=== PATIENT | male | born 1965 | race Caucasian/White ===

== ENCOUNTER 2022-04-11 11:43 | Emergency (ER) | payer OTHER ==
[2022-04-11] MEDS ORDERED: LIDOCAINE 1% 20 ML MDV ONE (12:03)
--- NOTE | 2022-04-11 12:32 | ER ---
Nurse's Notes [facility] Name: Umberto Oshea Age: 56 yrs Sex: Male : 1965 Arrival Date: 04/11/2022 Time: 11:46 Bed 5 Private MD: Diagnosis: Crushing injury of left hand, initial encounter-OPEN FRACTURES DISTAL PHALYNX 3RD, 4TH AND 5TH;Unspecified cirrhosis of liver Presentation: 04/11 11:47 Chief complaint: EMS states: "He was working on a water pump and tightening a bolt when ss the pump kicked on and his 3rd, 4th and 5th finger got caught in the belt." EMS reports "partial deglovement" to affected digits. Dressing in place prior to transport to ED. Coronavirus screen: Client denies travel out of the [place] in the last 14 days. Ebola Screen: Patient denies exposure to infectious person. Patient denies travel to an Ebola-affected area in the 21 days before illness onset. Initial Sepsis Screen: Does the patient meet any 2 criteria? No. Patient's initial sepsis screen is negative. Does the patient have a suspected source of infection? No. Patient's initial sepsis screen is negative. Risk Assessment: Do you want to hurt yourself or someone else? Patient reports no desire to harm self or others. Onset of symptoms was April 11, 2022. 11:47 Method Of Arrival: EMS: [facility] 11:47 Acuity: SHYANN 3 ss Historical: - Allergies: 11:50 No Known Allergies; ss - PMHx: 11:50 enlarged prostate; ss - PSHx: 11:50 None; ss - Immunization history:: Client reports having NOT received the Covid vaccine. Last tetanus immunization: up to date. - Social history:: Smoking status: Patient denies any tobacco usage or history of. - Family history:: not pertinent. Screenin:50 Abuse screen: Denies threats or abuse. Denies injuries from another. Nutritional ss screening: No deficits noted. Tuberculosis screening: Never had TB. Fall Risk None identified. Assessment: 11:51 General: Appears in no apparent distress. comfortable, Behavior is calm, cooperative. ss Pain: Complains of pain in right hand. Neuro: Watters Agitation-Sedation Scale (RASS): 0 - Alert and Calm Level of Consciousness is awake, alert, obeys commands, Oriented to person, place, time, situation. Cardiovascular: Pulses are palpable in right radial artery and left radial artery. Respiratory: Airway is patent Respiratory effort is even, unlabored, Respiratory pattern is regular, symmetrical. GI: No signs and/or symptoms were reported involving the gastrointestinal system. Musculoskeletal: Range of motion: limited in DIP of right middle finger, DIP of right ring finger and DIP of right little finger. 12:44 Reassessment: PT denies pain at this time after digital block and states he would like to hold off on receiving any pain medication at this time and will let ED staff know if his pain returns. Two detention guards remain at bedside. Pt remains in forensic cuffs. Respiratory: Airway is patent Respiratory effort is even, unlabored, Respiratory pattern is regular, symmetrical. 14:26 Reassessment: Report given to AIDA Mccracken [facility]. 15:00 Reassessment: Patient appears in no apparent distress at this time. Patient and/or ss family updated on plan of care and expected duration. Pain level reassessed. Patient is alert, oriented x 3, equal unlabored respirations, skin warm/dry/pink. Denies pain. [facility] states ETA will be approximately two hours. 15:00 Pain: Denies pain. 16:27 Reassessment: Patient appears in no apparent distress at this time. Patient and/or ss family updated on plan of care and expected duration. Pain level reassessed. awaiting transportation. Denies pain. Vital Signs: 11:47 BP 123 / 79; Pulse 73; Resp 16; Temp 98.0(TE); Pulse Ox 99% on R/A; Weight 78.02 kg; Height 6 ft. 2 in. (187.96 cm); 11:47 Body Mass Index 22.08 (78.02 kg, 187.96 cm) ED Course: 11:46 Patient arrived in ED. 11:47 Maral Pantoja RN is Primary Nurse. 11:50 Triage completed. 11:50 Tommy Chiu MD is Attending Physician. [facility] 11:50 Arm band placed on right wrist. 11:50 Patient has correct armband on for positive identification. Bed in low position. Call ss light in reach. 12:37 Inserted saline lock: 20 gauge in left antecubital area, using aseptic technique. Blood em1 collected. 12:41 Hand Right 3 View XRAY In Process Unspecified. EDMS 17:06 No provider procedures requiring assistance completed. Patient transferred, IV remains ss in place. Administered Medications: 12:15 Drug: Bupivacaine (0.5 %) 6 ml {Note: administered by Dr. Chiu to wound.} Volume: ss 10 ml; Route: Infiltration; 12:15 Drug: Lidocaine (1 %) 6 ml {Note: Administered by Dr. Chiu to wound.} Volume: 5 ml; ss Route: Infiltration; 12:40 Drug: NS 0.9% 500 ml Route: IV; Rate: bolus; Site: left antecubital; ss 13:25 Follow up: IV Status: Completed infusion ss 13:24 Drug: NS 0.9% 1000 ml Route: IV; Rate: 125 ml/hr; Site: left antecubital; ss 17:08 Follow up: IV Status: Infusion continued upon transfer ss 13:24 Drug: Ancef (cefazolin) 2 grams Route: IVPB; Infused Over: 30 mins; Site: left ss antecubital; 14:00 Follow up: IV Status: Completed infusion ss 16:59 Drug: morphine 4 mg Route: IVP; Infused Over: 4 mins; Site: left antecubital; ss 17:07 Follow up: Response: No adverse reaction; No adverse reaction, medication administered ss upon transfer as requested by patient 16:59 Drug: Zofran (Ondansetron) 4 mg Route: IVP; Site: left antecubital; ss 17:07 Follow up: Response: No adverse reaction ss Medication: 11:51 VIS not applicable for this client. Outcome: 12:31 ER care complete, transfer ordered by MD. cm 17:06 Transferred by ground EMS to [facility], Transfer form ss completed. X-rays sent w/ patient. 17:06 Condition: good 17:06 Instructed on the need for transfer, Demonstrated understanding of instructions. 17:06 Patient left the ED. ss Signatures: Dispatcher [employer] EDTommy Yoo MD MD cha Williams, Irene, RN Steve Riggs em1 Maral Pantoja RN RN
--- NOTE | 2022-04-11 12:32 | EDPHYS ---
Physician Documentation [facility] Name: Umberto Oshea Age: 56 yrs Sex: Male : 1965 Arrival Date: 04/11/2022 Time: 11:46 Bed 5 Private MD: JOSÉ Physician Tommy Chui HPI: 04/11 12:20 This 56 yrs old Male presents to ER via EMS with complaints of Hand Injury. toi 12:20 This 56 yrs old Male presents to ER via EMS with complaints of Hand Injury. toi 12:20 The patient or guardian reports decreased range of motion, injury, a laceration, toi irregular, complex. The complaints affect the right hand diffusely, dorsal aspect of distal phalanx of right middle finger, dorsal aspect of distal phalanx of right ring finger and right little fingernail. Context: The problem was sustained at a C. Onset: The symptoms/episode began/occurred just prior to arrival. Modifying factors: The symptoms are alleviated by holding still, the symptoms are aggravated by movement. Associated signs and symptoms: Pertinent positives: decreased sensation distally. Severity of symptoms: At their worst the symptoms were moderate, in the emergency department the symptoms are unchanged. The patient has not experienced similar symptoms in the past. Historical: - Allergies: 11:50 No Known Allergies; ss - PMHx: 11:50 enlarged prostate; ss - PSHx: 11:50 None; ss - Immunization history:: Client reports having NOT received the Covid vaccine. Last tetanus immunization: up to date. - Social history:: Smoking status: Patient denies any tobacco usage or history of. - Family history:: not pertinent. ROS: 12:20 Constitutional: Negative for fever, chills, and weight loss, Eyes: Negative for injury, toi pain, redness, and discharge, ENT: Negative for injury, pain, and discharge, Neck: Negative for injury, pain, and swelling, Cardiovascular: Negative for chest pain, palpitations, and edema, Respiratory: Negative for shortness of breath, cough, wheezing, and pleuritic chest pain, Abdomen/GI: Negative for abdominal pain, nausea, vomiting, diarrhea, and constipation, Back: Negative for injury and pain, : Negative for injury, bleeding, discharge, and swelling, Skin: Negative for injury, rash, and discoloration, Neuro: Negative for headache, weakness, numbness, tingling, and seizure, Psych: Negative for depression, anxiety, suicide ideation, homicidal ideation, and hallucinations, Allergy/Immunology: Negative for hives, rash, and allergies, Endocrine: Negative for neck swelling, polydipsia, polyuria, polyphagia, and marked weight changes, Hematologic/Lymphatic: Negative for swollen nodes, abnormal bleeding, and unusual bruising. 12:20 MS/extremity: Positive for decreased range of motion, laceration, pain, tenderness, of the dorsal aspect of distal phalanx of right middle finger, dorsal aspect of middle phalanx of right middle finger, dorsal aspect of distal phalanx of right ring finger, dorsal aspect of middle phalanx of right ring finger, dorsal aspect of distal phalanx of right little finger and right little fingernail. Exam: 12:20 Constitutional: This is a well developed, well nourished patient who is awake, alert, toi and in no acute distress. Head/Face: Normocephalic, atraumatic. Eyes: Pupils equal round and reactive to light, extra-ocular motions intact. Lids and lashes normal. Conjunctiva and sclera are non-icteric and not injected. Cornea within normal limits. Periorbital areas with no swelling, redness, or edema. ENT: Nares patent. No nasal discharge, no septal abnormalities noted. Tympanic membranes are normal and external auditory canals are clear. Oropharynx with no redness, swelling, or masses, exudates, or evidence of obstruction, uvula midline. Mucous membranes moist. Neck: Trachea midline, no thyromegaly or masses palpated, and no cervical lymphadenopathy. Supple, full range of motion without nuchal rigidity, or vertebral point tenderness. No Meningismus. Chest/axilla: Normal chest wall appearance and motion. Nontender with no deformity. No lesions are appreciated. Cardiovascular: Regular rate and rhythm with a normal S1 and S2. No gallops, murmurs, or rubs. Normal PMI, no JVD. No pulse deficits. Respiratory: Lungs have equal breath sounds bilaterally, clear to auscultation and percussion. No rales, rhonchi or wheezes noted. No increased work of breathing, no retractions or nasal flaring. Abdomen/GI: Soft, non-tender, with normal bowel sounds. No distension or tympany. No guarding or rebound. No evidence of tenderness throughout. Back: No spinal tenderness. No costovertebral tenderness. Full range of motion. Male : Normal genitalia with no discharge or lesions. Skin: Warm, dry with normal turgor. Normal color with no rashes, no lesions, and no evidence of cellulitis. Neuro: Awake and alert, GCS 15, oriented to person, place, time, and situation. Cranial nerves II-XII grossly intact. Motor strength 5/5 in all extremities. Sensory grossly intact. Cerebellar exam normal. Normal gait. Psych: Awake, alert, with orientation to person, place and time. Behavior, mood, and affect are within normal limits. 12:20 Musculoskeletal/extremity: Circulation is intact in all extremities. decreased sensation, Compartment Syndrome exam of affected extremity: is normal. Tendon exam: unable to examine Vital Signs: 11:47 BP 123 / 79; Pulse 73; Resp 16; Temp 98.0(TE); Pulse Ox 99% on R/A; Weight 78.02 kg; ss Height 6 ft. 2 in. (187.96 cm); 11:47 Body Mass Index 22.08 (78.02 kg, 187.96 cm) ss MDM: 11:50 Patient medically screened. toi 12:24 Differential diagnosis: open fracture. Data reviewed: vital signs, nurses notes, lab [facility] test result(s), radiologic studies, plain films. Data interpreted: ekg monitor tech: rhythm is Pulse oximetry: on room air. Test interpretation: by ED physician or midlevel provider: plain radiologic studies. Counseling: I had a detailed discussion with the patient and/or guardian regarding: the historical points, exam findings, and any diagnostic results supporting the discharge/admit diagnosis, lab results, radiology results, the need to transfer to another facility, for higher level of care, [facility] does not immediately have the required specialist. 04/11 12:19 Order name: CBC with Diff; Complete Time: 13:45 [facility] 04/11 12:19 Order name: Comprehensive Metabolic Panel; Complete Time: 13:45 [facility] 04/11 12:19 Order name: Hand Right 3 View XRAY; Complete Time: 13:45 [facility] 04/11 12:19 Order name: SARS-COV-2 RT PCR (Document "Date of Onset" if Symptomatic) [facility] 04/11 12:19 Order name: NPO; Complete Time: 12:38 [facility] 04/11 12:19 Order name: Dressing - Wound; Complete Time: 14:21 toi 04/11 12:19 Order name: Gloves, Sterile; Complete Time: 12:38 toi 04/11 12:19 Order name: Setup Suture Tray; Complete Time: 12:38 toi Administered Medications: 12:15 Drug: Bupivacaine (0.5 %) 6 ml {Note: administered by Dr. Chiu to wound.} Volume: ss 10 ml; Route: Infiltration; 12:15 Drug: Lidocaine (1 %) 6 ml {Note: Administered by Dr. Chiu to wound.} Volume: 5 ml; ss Route: Infiltration; 12:40 Drug: NS 0.9% 500 ml Route: IV; Rate: bolus; Site: left antecubital; ss 13:25 Follow up: IV Status: Completed infusion ss 13:24 Drug: NS 0.9% 1000 ml Route: IV; Rate: 125 ml/hr; Site: left antecubital; ss 17:08 Follow up: IV Status: Infusion continued upon transfer ss 13:24 Drug: Ancef (cefazolin) 2 grams Route: IVPB; Infused Over: 30 mins; Site: left ss antecubital; 14:00 Follow up: IV Status: Completed infusion ss 16:59 Drug: morphine 4 mg Route: IVP; Infused Over: 4 mins; Site: left antecubital; ss 17:07 Follow up: Response: No adverse reaction; No adverse reaction, medication administered ss upon transfer as requested by patient 16:59 Drug: Zofran (Ondansetron) 4 mg Route: IVP; Site: left antecubital; ss 17:07 Follow up: Response: No adverse reaction ss Disposition Summary: 04/11/22 12:31 Transfer Ordered Transfer Location: [facility] toi Reason: Higher level of care toi Condition: Fair toi Problem: new toi Symptoms: have improved toi Accepting Physician: TO [facility], HAND SURGERY(04/11/22 17:06) ss Diagnosis - Crushing injury of left hand, initial encounter - OPEN FRACTURES DISTAL PHALYNX toi 3RD, 4TH AND 5TH - Unspecified cirrhosis of liver toi Forms: - Medication Reconciliation Form toi - SBAR form toi Signatures: Dispatcher [employer] EDTommy Yoo MD MD cha Smirch, Shelby, RN RN ss Corrections: (The following items were deleted from the chart) 17:06 12:31 TO [facility], HAND SURGERY toi ss
[2022-04-11 12:41] LABS: Absolute Lymphocytes (CBC) 1.3 K/uL (0.7-4.9); Hematocrit 39.5 % (39.6-49.0); Lymphocytes % 16.7 % (15.3-44.8); MPV 8.3 fL (7.6-11.3); RBC Red Blood Cell Count 4.29 M/uL (4.33-5.43)
[2022-04-11] MEDS ORDERED: NA CHLORIDE 0.9% 1,000 ML ONE (12:47)
--- NOTE | 2022-04-11 12:47 | RAD REPORT ---
EXAM DESCRIPTION: RAD - Hand Right 3 View - 04/11/2022 12:39 pm CLINICAL HISTORY: Right hand pain status post injury FINDINGS: Avulsion fracture involves the base of the third distal phalanx which extends intra-articu larly. Markedly displaced fracture involves the fourth distal phalanx. It is comminuted. Avulsion fracture involves the base of the fifth middle phalanx. Extends intra-articularly. Comminuted moderately displaced fracture involves the fifth distal phalanx. There may be a dislocatio n as well.
[2022-04-11 12:56] LABS: Albumin 3.9 g/dL (3.4-5.0); Bilirubin Total 0.3 mg/dL (0.2-1.0); Potassium 4.6 mmol/L (3.5-5.1); Protein, Total 7.3 g/dL (6.4-8.2)
[2022-04-11] MEDS ORDERED: CEFAZOLIN SODIUM 2 GM in NA CHLORIDE 0.9% 100 ML IVPB ONE (13:15)
[2022-04-11] MEDS ORDERED: MORPHINE 4 MG/ML SYR ONE (17:01)
[2022-04-11] MEDS ORDERED: ONDANSETRON 4 MG/2 ML VIAL ONE (17:01)
[2022-04-11 17:13] VITALS: BP 123/79; TEMP 98; O2SAT 99
== END 2022-04-11 17:06 | disposition short-term general hospital (02) ==
LOC: ER 11:43
DX: S62.632B Displaced fracture of distal phalanx of right middle finger, initial encounter for open fracture (principal); S62.636B Displaced fracture of distal phalanx of right little finger, initial encounter for open fracture; S62.521B Displaced fracture of distal phalanx of right thumb, initial encounter for open fracture; W23.0XXA Caught, crushed, jammed, or pinched between moving objects, initial encounter; K74.60 Unspecified cirrhosis of liver; Z20.822 Contact with and (suspected) exposure to COVID-19
CPT/HCPCS: 85025; 36415; 80053; 73130; U0003; J2405; J7030